=== PATIENT | female | born 1970 | race Caucasian/White ===

== ENCOUNTER 2017-07-07 15:14 | Emergency (ER) | payer MEDICAID ==
[~2017-07-07] VITALS: Ht 157.5 cm; Wt 62.5 kg
[~2017-07-07 15:14] MED LIST: IBUP-1542 PO; LORA1TAB PO; NAPR-688 PO; RANI150T9 PO
[2017-07-07 15:17] VITALS: Ht 157.5 cm; Wt 62.5 kg
[2017-07-07] MEDS ORDERED: KETOROLAC 30 MG INJ IM STA (16:19)
[2017-07-07] MEDS ORDERED: LORAZEPAM 1 MG TAB PO ONE (16:30)
--- NOTE | 2017-07-07 17:44 | RADRPT ---
PROCEDURE: XR Chest. CLINICAL INDICATION: Chest pain. TECHNIQUE: Single frontal chest x-ray. COMPARISON: Chest radiograph 06/01/2016. FINDINGS: The cardiomediastinal silhouette is unremarkable. No pneumothorax, pleural effusion or consolidation is seen. No acute osseous abnormality is noted. IMPRESSION: 1. No acute cardiopulmonary abnormality. RPTAT: HH .Tyler Keenan MD, Date Time Electronically viewed and signed by .Tyler Keenan MD, on 07/07/2017 17:44 .N/
[2017-07-07] MEDS ORDERED: LORA-441 PO (18:00)
[2017-07-07] MEDS ORDERED: IBUP-1542 PO (18:00)
[2017-07-07] MEDS ORDERED: ALBU18HF INHALATION (18:00)
[2017-07-07 18:34] VITALS: BP 138/71; PULSE 71; RESP 20
--- NOTE | 2017-07-09 10:52 | ERD ---
ER Documentation Chief Complaint Chief Complaint Complains of abdominal pain x 3 days HPI Patient is a 46-year-old female presenting to the emergency department with complaints of upper back pain and neck pain intermittently for the past 3 days. There is radiation to the chest. She does have history of the same. He did go to her primary care physician 2 weeks ago, who ordered a chest x-ray, but she never followed up on the results. Associated symptoms include full body numbness and tingling which is intermittent. She also does notice some shortness of breath, which is not worse with exertion. She does admit to some anxiety. The patient did not report homicidal or suicidal ideation. She is not taking any medications for her symptoms currently. Symptoms have shown no improvement. She denies fevers, chills, or other symptoms at this time. ROS All systems reviewed and are negative except as per history of present illness. Medications Home Meds Active Scripts Ibuprofen* (Motrin*) 600 Mg Tab, 600 MG PO Q6, #30 TAB Prov:ARASELI NIÑO PA-C 07/07/17 Albuterol Sulfate* (Ventolin HFA*) 18 Gm Hfa.aer.ad, 2 PUFF INHALATION Q4H, #1 INHALER Prov:ARASELI NIÑO PA-C 07/07/17 Lorazepam* (Ativan*) 0.5 Mg Tablet, 0.5 MG PO Q8, #10 TAB Prov:ARASELI NIÑO PA-C 07/07/17 Lorazepam* (Lorazepam*) 1 Mg Tablet, 1 MG PO DAILY for 10 Days, #10 TAB 0 Refills Prov:TIFFANIE EDLGADO PA-C 06/01/16 Ibuprofen* (Motrin*) 600 Mg Tab, 600 MG PO Q8 for 10 Days, #30 TAB 0 Refills Prov:TIFFANIE DELGADO PA-C 06/01/16 Naproxen* (Naproxen*) 500 Mg Tablet, 500 MG PO BID, #20 TAB Prov:ANTWAN MCKEON DO 04/02/16 Ranitidine Hcl* (Zantac*) 150 Mg Tablet, 150 MG PO BID Y for EPIGASTRIC PAIN, # 30 TAB Prov:ANTWAN MCKEON DO 04/02/16 Allergies Allergies: Coded Allergies: No Known Allergy (Unverified , 07/07/17) PMhx/Soc History of Surgery: Yes ( X1) Anesthesia Reaction: No Hx Neurological Disorder: No Hx Respiratory Disorders: No Hx Cardiac Disorders: No Hx Psychiatric Problems: No Hx Miscellaneous Medical Probl: No Hx Alcohol Use: No Hx Substance Use: No Hx Tobacco Use: No Physical Exam Vitals Vital Signs Date Time Temp Pulse Resp B/P Pulse Ox O2 Delivery O2 Flow Rate FiO2 07/07/17 18:34 71 20 138/71 99 Room Air 07/07/17 15:17 98.6 77 20 146/67 99 Physical Exam Const: Nontoxic, well-appearing female in no acute distress. Head: Atraumatic Eyes: Normal Conjunctiva ENT: Normal External Ears, Nose and Mouth. Neck: Full range of motion..~ No meningismus. Resp: Clear to auscultation bilaterally Cardio: Regular rate and rhythm, no murmurs. Mild left-sided chest wall tenderness to palpation. Abd: Soft, non tender, non distended. Normal bowel sounds Skin: No petechiae or rashes Back: No midline or flank tenderness. Subjective tenderness to palpation of bilateral upper back. Ext: No cyanosis, or edema Neur: Awake and alert Psych: Normal Mood and Affect. No homicidal or suicidal ideation. Results 24 hrs Current Medications Medications (Trade) Dose Ordered Sig/Ronnie Route PRN Reason Start Time Stop Time Status Last Admin Dose Admin Ketorolac Tromethamine (Toradol) 30 mg ONCE STAT IM 07/07/17 16:19 07/07/17 16:21 DC 07/07/17 16:38 Lorazepam (Ativan) 1 mg ONCE ONCE PO 07/07/17 16:30 07/07/17 16:31 DC 07/07/17 16:38 Procedures/MDM 46-year-old female presents to the emergency department with complaints of upper back pain with radiation to the chest as well as full body numbness and tingling. The patient does appear slightly anxious on initial exam. No report of homicidal or suicidal ideation. Given the patient's symptoms, I highly suspect acute anxiety. The patient does admit to some mild anxiety at this time. I very much doubt acute coronary syndrome, aortic dissection, pneumothorax, or other emergent conditions. The patient's vital signs were stable throughout her ED course. She was given 1 mg Ativan and 30 mg Toradol and she is feeling significantly improved on reevaluation. Chest x-ray and EKG were also ordered given the patient's vague chest pain. The chest pain was reproducible on exam which made acute coronary syndrome less likely. Chest x- ray showed no acute cardiopulmonary abnormality. EKG was not concerning for ST segment elevation or other abnormalities. As stated previously, the patient's top differential diagnosis is acute anxiety. Upon review of patient's past medical records, she has been diagnosed with anxiety in the past with a prescription for lorazepam. At this visit the patient was also sent home with a prescription for Ativan. Low suspicion for emergent pathology at time of discharge. The patient was comfortable going home after treatment and her cardiothoracic and musculoskeletal symptoms stabilized. The patient was advised to return immediately for any new or worsening symptoms. She agreed with the discharge plan and diagnosis. She is to have close follow-up with her primary care physician within 1-2 days. She is to return immediately for any new or worsening symptoms. PROCEDURE: XR Chest. CLINICAL INDICATION: Chest pain. TECHNIQUE: Single frontal chest x-ray. COMPARISON: Chest radiograph 06/01/2016. FINDINGS: The cardiomediastinal silhouette is unremarkable. No pneumothorax, pleural effusion or consolidation is seen. No acute osseous abnormality is noted. IMPRESSION: 1. No acute cardiopulmonary abnormality. RPTAT: HH .Tyler Keenan MD, Date Time Electronically viewed and signed by .Tyler Keenan MD, on 07/07/2017 17: 44 EKG: Reviewed with attending physician, Dr. Kenna Samano Rate/Rhythm: This rhythm with a rate of 61 bpm. QRS, ST, T-waves: No changes consistent w/ acute ischemia Impression: No evidence of ischemia or arrhythmia Departure Diagnosis: Primary Impression: Anxiety reaction Additional Impression: Back pain Back pain location: back pain in unspecified location Chronicity: acute Back pain laterality: unspecified Qualified Code: M54.9 - Acute back pain, unspecified back location, unspecified back pain laterality Condition: Fair Patient Instructions: Your Body's Response to Anxiety, Anxiety Reaction Referrals: [facility] Usted se martin hecho un examen mdico de control que le indica que no est en jasmeet condicin que requiera tratamiento urgente en el Departamento de Emergencia. Un estudio ms profundo y el tratamiento de alonzo condicin pueden esperar sin ningn riesgo hasta que usted sea atendida/o en el consultorio de alonzo mdico o jasmeet cl khurram. Es responsabilidad suya arreglar jasmeet rito para el seguimiento del jana. MANEJO DE CONDICIONES NO URGENTES EN EL FUTURO 1) Si usted tiene un mdico de atencin primaria: Usted debera llamar a alonzo mdico de atencin primaria antes de venir al departamento de emergencia. Despus de las horas de consultorio, alonzo doctor o alonzo asociado/a est disponible por telfono. El mdico o enfermero de sheryl en el servicio telefnico puede asesorarle por meli medio para atender el problema, o jana contrario se puede programar jasmeet rito. 2) Si usted no tiene un mdico de atencin primaria: Llame al mdico o clnica de referencia que aparece abajo lino las horas de consultorio para hacer jasmeet rito para que le vean. CLINICAS: [facility] [id number] [facility] [phone] [facility] [phone] [facility] [facility] [phone] [facility] [phone] [address] [facility] [phone] [address] Additional Instructions: No mas mejor en 2-3 vela, regresar. Mas peor en 24 horas, regresear rapidamente. Ir a doctor primario in 5-7 vela. Usar instrucciones cuando mindy medicamento. ARASELI NIÑO PA-C Jul 09, 2017 10:52
== END 2017-07-07 18:35 | disposition home or self-care (01) ==
LOC: FTE 15:14
DX: F41.1 Generalized anxiety disorder (principal)
CPT/HCPCS: 71010; 93005; 96372; J1885; Z7502; Z7610

== ENCOUNTER 2017-08-22 06:56 | Emergency (ER) | payer MEDICAID ==
[~2017-08-22] VITALS: Wt 62.0 kg
[~2017-08-22 06:56] MED LIST changes: +ALBU18HF INHALATION; +LORA-441 PO
--- NOTE | 2017-08-22 07:17 | ERD ---
ER Documentation Chief Complaint Chief Complaint COUGH, THROAT PAIN, CONGESTION, ONSET 4 DAYS HPI 46-year-old otherwise healthy female presents emergency department for complaints of cough, congestion, and pleuritic chest pain only when coughing 4 days. Patient states she is attempted to treat her symptoms with over-the- counter cough medicine with mild relief. She denies fever, chills, nausea, vomiting, abdominal pain, headache, neck pain or stiffness. ROS All systems reviewed and are negative except as per history of present illness. Medications Home Meds Active Scripts Dextromethorphan Hb-Promethazine Hcl* (Promethazine DM* Syrup) 473 Ml Syrup, 5 ML PO Q6 Y for COUGH for 7 Days, ML Prov:MYRIAM ROOT PA-C 08/22/17 Azithromycin* (Zithromax* Tri-Dylon) 500 Mg Tablet, 500 MG PO DAILY for 3 Days, TAB Prov:MYRIAM ROOT PA-C 08/22/17 Naproxen* (Naprosyn*) 500 Mg Tablet, 500 MG PO BID Y for PAIN AND/OR INFLAMMATION, #30 TAB Prov:MYRIAM ROOT PA-C 08/22/17 Guaifenesin/Pseudoephedrne HCl (Mucinex D ER 1,200-120 mg Tab) 1 Each Tab.er.12h , 2 EACH PO QAM for 7 Days, TAB Prov:MYRIAM ROOT PA-C 08/22/17 Ibuprofen* (Motrin*) 600 Mg Tab, 600 MG PO Q6, #30 TAB Prov:ARASELI NIÑO PA-C 07/07/17 Albuterol Sulfate* (Ventolin HFA*) 18 Gm Hfa.aer.ad, 2 PUFF INHALATION Q4H, #1 INHALER Prov:ARASELI NIÑO PA-C 07/07/17 Lorazepam* (Ativan*) 0.5 Mg Tablet, 0.5 MG PO Q8, #10 TAB Prov:ARASELI NIÑO PA-C 07/07/17 Lorazepam* (Lorazepam*) 1 Mg Tablet, 1 MG PO DAILY for 10 Days, #10 TAB 0 Refills Prov:TIFFANIE DELGADO PA-C 06/01/16 Ibuprofen* (Motrin*) 600 Mg Tab, 600 MG PO Q8 for 10 Days, #30 TAB 0 Refills Prov:TIFFANIE DELGADO PA-C 06/01/16 Naproxen* (Naproxen*) 500 Mg Tablet, 500 MG PO BID, #20 TAB Prov:ANTWAN MCKEON DO 04/02/16 Ranitidine Hcl* (Zantac*) 150 Mg Tablet, 150 MG PO BID Y for EPIGASTRIC PAIN, # 30 TAB Prov:ANTWAN MCKEON DO 04/02/16 Allergies Allergies: Coded Allergies: No Known Allergy (Unverified , 07/07/17) PMhx/Soc History of Surgery: Yes ( X1) Anesthesia Reaction: No Hx Neurological Disorder: No Hx Respiratory Disorders: No Hx Cardiac Disorders: No Hx Psychiatric Problems: No Hx Miscellaneous Medical Probl: No Hx Alcohol Use: No Hx Substance Use: No Hx Tobacco Use: No Physical Exam Vitals Vital Signs Date Time Temp Pulse Resp B/P Pulse Ox O2 Delivery O2 Flow Rate FiO2 08/22/17 06:58 97.8 84 17 130/63 98 Physical Exam Const: Well-developed, well-nourished, in no acute distress Head: Atraumatic Eyes: Normal Conjunctiva ENT: Normal External Ears, Nose and Mouth.Tenderness to palpation of the bilateral maxillary sinuses.Posterior oropharynx without erythema, swelling or exudate. Neck: Full range of motion..~ No meningismus. Resp: Clear to auscultation bilaterally Cardio: Regular rate and rhythm, no murmurs Abd: Soft, non tender, non distended. Normal bowel sounds Skin: No petechiae or rashes Back: No midline or flank tenderness Ext: No cyanosis, or edema Neur: Awake and alert Psych: Normal Mood and Affect Procedures/MDM This is an otherwise healthy, nontoxic-appearing, 46-year-old female who presents the emergency department for complaints of cough, congestion, and sore throat 4 days. Vital signs reviewed. Patient afebrile, not tachycardic and not hypoxic upon arrival. Physical exam unremarkable, aside from tenderness of the maxillary sinuses upon palpation. The patient's clinical presentation is very consistent with sinus congestion, cough, and sore throat, likely the result of an acute viral syndrome. The patient does not exhibit any clinical signs or symptoms concerning for serious bacterial infection or systemic illness. Based on history and clinical exam findings the patient does not appear to have evidence of pneumonia, strep pharyngitis, urinary tract infection, bacteremia, sepsis, or meningitis. For these reasons I do not believe it is necessary to obtain laboratory testing or diagnostic imaging. I believe it would be appropriate for symptom control, and close outpatient primary care follow-up. Based on patient's history of present illness and physical examination the decision was made to discharge. The patient was re-evaluated after ED treatment and stabilizing measures, and symptoms have improved. There is no evidence of life threatening injuries or illnesses at this time. Based on patient's age and sinus tenderness, I will be providing her with a prescription for an antibiotic with instructions to begin in 5-7 days if she does not experience improvement or her symptoms worsen. On re-examination, patient resting in no distress, stable vital signs, reports feeling better and safe for discharge with outpatient follow up with PMD in 1-2 days. Patient given return precautions. Departure Diagnosis: Primary Impression: Upper respiratory infection URI type: unspecified viral URI Qualified Code: J06.9 - Viral upper respiratory tract infection Additional Impressions: Cough Sinus congestion MYRIAM ROOT PA-C Aug 22, 2017 07:17
[2017-08-22] MEDS ORDERED: NAPR-260 PO (07:21)
[2017-08-22] MEDS ORDERED: GUAI-106 PO (07:21)
[2017-08-22] MEDS ORDERED: D-ME473S2 PO (07:21)
[2017-08-22] MEDS ORDERED: AZIT500T2 PO (07:21)
== END 2017-08-22 07:45 | disposition home or self-care (01) ==
LOC: FTE 06:56
DX: J06.9 Acute upper respiratory infection, unspecified (principal)
CPT/HCPCS: 99284

== ENCOUNTER 2019-02-05 19:57 | Emergency (ER) | payer MEDICAID, OTHER ==
[~2019-02-05] VITALS: Ht 160 cm; Wt 63.8 kg
[~2019-02-05 19:57] MED LIST changes: +AZIT500T2 PO; +D-ME473S2 PO; +GUAI-106 PO; +NAPR-985 PO; +RANI150T35 PO; -RANI150T9 PO
[2019-02-05 20:03] VITALS: Ht 160 cm; Wt 63.8 kg
[2019-02-05] MEDS ORDERED: ACETAMINOPHEN 500 MG TAB PO STA (21:02)
[2019-02-05] MEDS ORDERED: BENZ-6 PO (23:14)
[2019-02-05] MEDS ORDERED: IBUP-1542 PO (23:14)
[2019-02-05] MEDS ORDERED: AZIT250T PO (23:14)
[2019-02-05 23:45] VITALS: BP 162/67; PULSE 59; RESP 18
--- NOTE | 2019-02-06 00:05 | ERD ---
ER Documentation Chief Complaint Chief Complaint PRODUCTIVE COUGH WITH CWP AND BACK PAIN X1WK HPI This is a 48-year-old female patient who presents to the emergency room with complaint of cough and back pain x1 week. Subjective fevers, headache, muscle aches and pains. Denies chest pain or shortness of breath. Patient does not smoke. No chronic medical problems no recent travel, no sick contacts. ROS All systems reviewed and are negative except as per history of present illness. Medications Home Meds Active Scripts Benzonatate* (Tessalon Perle*) 100 Mg Capsule, 100 MG PO TID for 5 Days, #15 CAP Prov:DEO BRODERICK NP 02/05/19 Ibuprofen* (Motrin*) 600 Mg Tab, 600 MG PO Q6, #30 TAB Prov:DEO BRODERICK NP 02/05/19 Azithromycin* (Zithromax*) 250 Mg Tablet, 250 MG PO .ZPACK DIRECTED, #6 TAB TAKE 500 MG (2 TABS) THE FIRST DAY THEN 250 MG (1 TAB) DAYS 2-5 Prov:DEO BRODERICK NP 02/05/19 Dextromethorphan Hb-Promethazine Hcl* (Promethazine DM* Syrup) 473 Ml Syrup, 5 ML PO Q6 PRN for COUGH for 7 Days, ML Prov:MYRIAM ROOT PA-C 08/22/17 Azithromycin* (Zithromax* Tri-Dylon) 500 Mg Tablet, 500 MG PO DAILY for 3 Days, TAB Prov:MYRIAM ROOT PA-C 08/22/17 Naproxen* (Naprosyn*) 500 Mg Tablet, 500 MG PO BID PRN for PAIN AND/OR INFLAMMATION, #30 TAB Prov:MYRIAM ROOT PA-C 08/22/17 Guaifenesin/Pseudoephedrne HCl (Mucinex D ER 1,200-120 mg Tab) 1 Each Tab.er.12h, 2 EACH PO QAM for 7 Days, TAB Prov:MYRIAM ROOT PA-C 08/22/17 Ibuprofen* (Motrin*) 600 Mg Tab, 600 MG PO Q6, #30 TAB Prov:ARASELI NIÑO PA-C 07/07/17 Albuterol Sulfate* (Ventolin HFA*) 18 Gm Hfa.aer.ad, 2 PUFF INHALATION Q4H, #1 INHALER Prov:ARASELI NIÑO Elsa KATE 07/07/17 Lorazepam* (Ativan*) 0.5 Mg Tablet, 0.5 MG PO Q8, #10 TAB Prov:ARASELI NIÑO LAVINIA 07/07/17 Lorazepam* (Lorazepam*) 1 Mg Tablet, 1 MG PO DAILY for 10 Days, #10 TAB 0 Refills Prov:DANNYTIFFANIE PA-C 06/01/16 Ibuprofen* (Motrin*) 600 Mg Tab, 600 MG PO Q8 for 10 Days, #30 TAB 0 Refills Prov:DANNYTIFFANIE PA-C 06/01/16 Naproxen* (Naproxen*) 500 Mg Tablet, 500 MG PO BID, #20 TAB Prov:ANTWAN MCKEON DO 04/02/16 Ranitidine Hcl* (Zantac*) 150 Mg Tablet, 150 MG PO BID PRN for EPIGASTRIC PAIN, #30 TAB Prov:MIKEANTWANHARRIS SAHU 04/02/16 Allergies Allergies: Coded Allergies: No Known Allergy (Unverified , 07/07/17) PMhx/Soc History of Surgery: Yes ( X1) Anesthesia Reaction: No Hx Neurological Disorder: No Hx Respiratory Disorders: No Hx Cardiac Disorders: No Hx Psychiatric Problems: No Hx Miscellaneous Medical Probl: No Hx Alcohol Use: No Hx Substance Use: No Hx Tobacco Use: No Smoking Status: Never smoker FmHx Family History: diabetes Physical Exam Vitals Vital Signs Date Temp Pulse Resp B/P (MAP) Pulse Ox O2 O2 Flow FiO2 Time Delivery Rate 02/05/19 97.8 59 18 162/67 98 Room Air 23:45 (98) 02/05/19 98.4 72 22 159/71 99 20:03 (100) Physical Exam Const: No acute distress Head: Atraumatic Eyes: Normal Conjunctiva, PERRL ENT: Normal External Ears, Nose and Mouth. Pharynx pink, no lesions, no exudate, no petechiae. Neck: Full range of motion. No meningismus. No lymphadenopathy, no thyromegaly Resp: Clear to auscultation bilaterally, + expiratory wheeze to SHAHEEN Cardio: Regular rate and rhythm, no murmurs Abd: Soft, non tender, non distended. Normal bowel sounds Skin: No petechiae or rashes Back: No midline or flank tenderness, no CVT Ext: No cyanosis, or edema Neur: Awake and alert Psych: Normal Mood and Affect Results 24 hrs Current Medications Medications Dose Sig/Ronnie Start Time Status Last (Trade) Ordered Route PRN Stop Time Admin Dose Reason Admin 1,000 mg ONCE STAT 02/05/19 DC 02/05/19 Acetaminophen PO 21:02 21:16 (Tylenol 02/05/19 21:03 Tab) Procedures/MDM This is a 48-year-old female patient presents emergency room with cough x1 week. ED COURSE: The patient was stable throughout ED course. DIAGNOSTIC IMAGING: Read by radiologist. FINDINGS: Cardiomediastinal silhouette is normal. There is no pneumothorax or pleural effusion. There is no focal pulmonic consolidation. Osseous structures are intact. Cholecystectomy clips are seen in the right upper quadrant of the abdomen. IMPRESSION: 1. No acute cardiopulmonary abnormality. MEDICATIONS GIVEN: Tylenol Patient tolerated medication well with no adverse reactions. Patient reported improvement in pain. MDM: At the time of discharge, vital signs stable, no respiratory distress. Differential diagnosis include but not limited to: Respiratory infection bacterial/viral/fungal. Influenza, pharyngitis, gastroenteritis, asthma, croup, bronchiolitis, allergies, GERD. Less likely foreign body aspiration, pneumonia . Physical examination and clinical presentation consistent most likely with viral syndrome. During the ED course the patient remained stable. Clinical impression discussed with the patient who agrees with management. The patient is stable to be treated outpatient and will be discharged home. Deferred antibiotic prescription provided with clear instructions on signs and symptoms of worsening of condition and when to initiate antibiotic. Patient was instructed to increase hydration, rest, use of NSAIDs prior to initiating antibiotic. The patient requires a follow up with the primary care provider in the next 48h. If symptoms persist, worsen or new symptoms develop, then patient should return to the ED immediately. Disclaimer: Inadvertent spelling and grammatical errors are likely due to EHR/dictation software use and do not reflect on the overall quality of patient care. Also, please note that the electronic time recorded on this note does not necessarily reflect the actual time of the patient encounter. DISPOSITION: The patient has been discharge home to follow-up with community physician. Departure Diagnosis: Primary Impression: Cough Condition: Stable Patient Instructions: Cough, Chronic, Uncertain Cause, (Adult) Referrals: COMM[facility] YOU HAVE RECEIVED A MEDICAL SCREENING EXAM AND THE RESULTS INDICATE THAT YOU DO NOT HAVE A CONDITION THAT REQUIRES URGENT TREATMENT IN THE EMERGENCY DEPARTMENT. FURTHER EVALUATION AND TREATMENT OF YOUR CONDITION CAN WAIT UNTIL YOU ARE SEEN IN YOUR DOCTORS OFFICE WITHIN THE NEXT 1-2 DAYS. IT IS YOUR RESPONSIBILITY TO MAKE AN APPOINTMENT FOR FOLOW-UP CARE. IF YOU HAVE A PRIMARY DOCTOR --you should call your primary doctor and schedule an appointment IF YOU DO NOT HAVE A PRIMARY DOCTOR YOU CAN CALL OUR PHYSICIAN REFERRAL HOTLINE AT IF YOU CAN NOT AFFORD TO SEE A PHYSICIAN YOU CAN CHOSE FROM THE FOLLOWING [facility] [address] [facility] [facility] [address] [facility] [facility] [address] [facility] [address] [facility]. [facility] [address] [facility] [facility]. [address] Additional Instructions: Thank you very much for allowing us to participate in your care. Your health and safety is our top priority at [facility]. Call your primary care doctor TOMORROW for an appointment during the next 2-4 days and bring all the information and medications prescribed. Have prescriptions filled and follow precisely the directions on the label. If the symptoms get worse and your provider is unavailable, return to the Emergency Department immediately. 1. Increase hydration to 1 to 2 L/day 2. Increased rest 3. Use ibuprofen every 6-8 hours as needed for headache, muscle aches 4. Initiate antibiotic in the next 1 to 2 days if you develop a fever greater than 101, cough worsens with more phlegm, you generally are feeling worse and not better. Follow-up with your primary care doctor for reevaluation of cough. DEO BRODERICK NP February 06, 2019 00:05
== END 2019-02-05 23:45 | disposition home or self-care (01) ==
LOC: FTE 19:57
DX: R05 Cough (principal)
CPT/HCPCS: 71046; Z7502; Z7610